=== PATIENT | female | born 1950 ===

== ENCOUNTER → 2017-11-15 | Outpatient (CLI) | payer OTHER | END | disposition home or self-care (01) | LOC: LAB 11:03 | DX: M19.90 Unspecified osteoarthritis, unspecified site (principal); E78.5 Hyperlipidemia, unspecified; E03.8 Other specified hypothyroidism; E55.9 Vitamin D deficiency, unspecified ==

== ENCOUNTER 2017-11-29 12:53 | Outpatient (CLI) | payer OTHER | END 2017-11-29 12:58 | disposition home or self-care (01) | LOC: RAD 12:53 | DX: M19.041 Primary osteoarthritis, right hand (principal); M19.042 Primary osteoarthritis, left hand ==

== ENCOUNTER 2017-11-29 13:46 | Outpatient (CLI) | payer OTHER | END 2017-11-29 13:48 | disposition home or self-care (01) | LOC: NUCLEAR 13:46 | DX: M81.0 Age-related osteoporosis without current pathological fracture (principal) ==

== ENCOUNTER 2018-02-28 11:57 | Outpatient (CLI) | payer OTHER | END 2018-02-28 12:07 | disposition home or self-care (01) | LOC: LAB 11:57 | DX: D64.89 Other specified anemias (principal); E78.2 Mixed hyperlipidemia; E78.5 Hyperlipidemia, unspecified; E78.89 Other lipoprotein metabolism disorders; K92.1 Melena; Z12.11 Encounter for screening for malignant neoplasm of colon; R19.5 Other fecal abnormalities; M10.00 Idiopathic gout, unspecified site; E03.0 Congenital hypothyroidism with diffuse goiter; E03.8 Other specified hypothyroidism; E13.10 Other specified diabetes mellitus with ketoacidosis without coma; E08.8 Diabetes mellitus due to underlying condition with unspecified complications ==

== ENCOUNTER → 2018-03-24 | Outpatient (CLI) | payer OTHER | END | disposition home or self-care (01) | LOC: LAB 15:04 | DX: D64.89 Other specified anemias (principal); E78.2 Mixed hyperlipidemia; E78.5 Hyperlipidemia, unspecified; E78.89 Other lipoprotein metabolism disorders; K92.1 Melena; Z12.11 Encounter for screening for malignant neoplasm of colon; R19.5 Other fecal abnormalities; E03.0 Congenital hypothyroidism with diffuse goiter; E03.8 Other specified hypothyroidism; E08.8 Diabetes mellitus due to underlying condition with unspecified complications; I13.10 Hypertensive heart and chronic kidney disease without heart failure, with stage 1 through stage 4 chronic kidney disease, or unspecified chronic kidney disease ==

== ENCOUNTER 2018-06-19 12:12 | Outpatient (CLI) | payer OTHER | END 2018-06-19 12:18 | disposition home or self-care (01) | LOC: LAB 12:12 | DX: E78.2 Mixed hyperlipidemia (principal); E78.89 Other lipoprotein metabolism disorders; E11.9 Type 2 diabetes mellitus without complications; R73.9 Hyperglycemia, unspecified; Z68.41 Body mass index [BMI] 40.0-44.9, adult; M12.88 Other specific arthropathies, not elsewhere classified, other specified site; M89.8X8 Other specified disorders of bone, other site ==

== ENCOUNTER 2018-12-08 13:57 | Outpatient (CLI) | payer OTHER | END 2018-12-08 14:11 | disposition home or self-care (01) | LOC: LAB 13:57 | DX: M89.8X8 Other specified disorders of bone, other site (principal); M12.88 Other specific arthropathies, not elsewhere classified, other specified site; Z68.41 Body mass index [BMI] 40.0-44.9, adult ==

== ENCOUNTER 2019-06-04 13:42 | Outpatient (CLI) | payer OTHER | END 2019-06-04 15:00 | disposition home or self-care (01) | LOC: LAB 13:42 | DX: M89.8X8 Other specified disorders of bone, other site (principal); M12.88 Other specific arthropathies, not elsewhere classified, other specified site; Z68.41 Body mass index [BMI] 40.0-44.9, adult ==

== ENCOUNTER 2019-11-27 13:18 | Outpatient (CLI) | payer OTHER | END 2019-11-27 13:28 | disposition home or self-care (01) | LOC: LAB 13:18 | DX: M89.8X8 Other specified disorders of bone, other site (principal); M12.88 Other specific arthropathies, not elsewhere classified, other specified site; Z68.41 Body mass index [BMI] 40.0-44.9, adult; E78.49 Other hyperlipidemia; E78.89 Other lipoprotein metabolism disorders; K76.0 Fatty (change of) liver, not elsewhere classified; N39.0 Urinary tract infection, site not specified; E08.00 Diabetes mellitus due to underlying condition with hyperosmolarity without nonketotic hyperglycemic-hyperosmolar coma (NKHHC); I13.10 Hypertensive heart and chronic kidney disease without heart failure, with stage 1 through stage 4 chronic kidney disease, or unspecified chronic kidney disease; Z12.11 Encounter for screening for malignant neoplasm of colon; R19.5 Other fecal abnormalities; E55.9 Vitamin D deficiency, unspecified; E03.8 Other specified hypothyroidism ==

== ENCOUNTER 2019-11-30 14:27 | Outpatient (CLI) | payer OTHER | END 2019-11-30 15:25 | disposition home or self-care (01) | LOC: LAB 14:27 | DX: D64.89 Other specified anemias (principal); E78.49 Other hyperlipidemia; K76.0 Fatty (change of) liver, not elsewhere classified; Z12.11 Encounter for screening for malignant neoplasm of colon; R19.5 Other fecal abnormalities; M10.00 Idiopathic gout, unspecified site; E03.0 Congenital hypothyroidism with diffuse goiter; E03.8 Other specified hypothyroidism; E55.9 Vitamin D deficiency, unspecified; M19.91 Primary osteoarthritis, unspecified site ==

== ENCOUNTER 2020-07-24 12:06 | Outpatient (CLI) | payer OTHER | END 2020-07-24 12:11 | disposition home or self-care (01) | LOC: LAB 12:06 | PROVIDERS: ATTEND Specialist | DX: D64.89 Other specified anemias (principal); E66.01 Morbid (severe) obesity due to excess calories; I87.2 Venous insufficiency (chronic) (peripheral); M89.8X8 Other specified disorders of bone, other site; M12.88 Other specific arthropathies, not elsewhere classified, other specified site; I13.10 Hypertensive heart and chronic kidney disease without heart failure, with stage 1 through stage 4 chronic kidney disease, or unspecified chronic kidney disease; Z68.41 Body mass index [BMI] 40.0-44.9, adult; E78.2 Mixed hyperlipidemia; E78.89 Other lipoprotein metabolism disorders; K76.0 Fatty (change of) liver, not elsewhere classified; M05.89 Other rheumatoid arthritis with rheumatoid factor of multiple sites ==

== ENCOUNTER 2020-12-26 13:26 | Outpatient (CLI) | payer OTHER | END 2020-12-26 13:44 | disposition home or self-care (01) | LOC: LAB 13:26 | PROVIDERS: ATTEND Specialist | DX: I87.2 Venous insufficiency (chronic) (peripheral) (principal); M12.9 Arthropathy, unspecified; M89.8X0 Other specified disorders of bone, multiple sites; Z68.41 Body mass index [BMI] 40.0-44.9, adult; E66.01 Morbid (severe) obesity due to excess calories ==

== ENCOUNTER 2021-11-12 12:06 | Outpatient (CLI) | payer OTHER | END 2021-11-12 12:17 | disposition home or self-care (01) | LOC: LAB 12:06 | PROVIDERS: ATTEND Specialist | DX: I10 Essential (primary) hypertension (principal); R80.0 Isolated proteinuria; E78.49 Other hyperlipidemia; D64.89 Other specified anemias; E11.9 Type 2 diabetes mellitus without complications; E55.9 Vitamin D deficiency, unspecified; N39.0 Urinary tract infection, site not specified; Z12.11 Encounter for screening for malignant neoplasm of colon; K92.1 Melena; E03.8 Other specified hypothyroidism ==

== ENCOUNTER 2021-11-12 13:06 | Outpatient (CLI) | payer OTHER | END 2021-11-12 13:22 | disposition home or self-care (01) | LOC: SONOGRAMA 13:06 | PROVIDERS: ATTEND Specialist | DX: Z12.31 Encounter for screening mammogram for malignant neoplasm of breast (principal); N63.0 Unspecified lump in unspecified breast ==